=== PATIENT | male | born 1995 | race Two or more races ===

== ENCOUNTER 2019-02-23 09:34 | Emergency (ER) | payer MEDICAID ==
[~2019-02-23] VITALS: Ht 170.2 cm; Wt 68.0 kg
[2019-02-23 09:46] VITALS: BP 120/78
--- NOTE | 2019-02-23 09:49 | NUR ---
ED Nurse Note: Patient walked into ER from home due to right knee pain d/t fall on stairs at home. Patient c/o pain /. Patient aao x 4 and ambulatory but uneven gait due to pain on right knee. Calm and cooperative. No cardiovascular or respiratory distress noted.
--- NOTE | 2019-02-23 09:59 | NUR ---
ED Nurse Note: X-ray at bedside.
--- NOTE | 2019-02-23 10:16 | Diagnostic Imaging Report ---
EXAM: XR Right Knee, 3 Views CLINICAL HISTORY: TRAUMA TECHNIQUE: Three views of the right knee. COMPARISON: None FINDINGS: Bones/joints: No displaced fracture or dislocation identified. Joint space is maintained. No bony lesion. No knee joint effusion. Soft tissues: Normal. IMPRESSION: No displaced fracture or dislocation identified.
[2019-02-23] MEDS ORDERED: NKM (11:03)
--- NOTE | 2019-02-23 11:22 | NUR ---
ED Nurse Note: ERMD with patient.
--- NOTE | 2019-02-23 11:46 | NUR ---
ED Nurse Note: ERMD with patient.
--- NOTE | 2019-02-23 11:53 | NUR ---
ED Nurse Note: Knee immobilizer placed and crutches provided by [employer]. Instructions for crutches given, patient verbalized understanding.
--- NOTE | 2019-02-23 11:58 | Emergency Room Report ---
History of Present Illness General Chief Complaint: Lower Extremity Injury Source: Patient Present Illness HPI She states that this morning he tripped and fell on the stairs and twisted his right knee. He states that he has pain in the medial part of his right knee. He has no other injuries or complaints. He states the pain is worse with movement and walking. Denies weakness. He denies tingling or numbness. He denies any other trauma. Allergies: Coded Allergies: No Known Allergies (Unverified , 02/23/19) Patient History Past Medical History: see triage record Social History: Denies: smoking, alcohol use, drug use Reviewed Nursing Documentation: PMH: Agreed; PSxH: Agreed Nursing Documentation-PMH Past Medical History: No Stated History Review of Systems All Other Systems: negative except mentioned in HPI Physical Exam Vital Signs Date Time Temp Pulse Resp B/P (MAP) Pulse Ox O2 Delivery O2 Flow Rate FiO2 02/23/19 09:41 97.7 61 16 118/68 (85) 98 Room Air Sp02 EP Interpretation: reviewed, normal General Appearance: no apparent distress, alert, GCS 15, non-toxic Head: normocephalic, atraumatic Eyes: bilateral eye normal inspection ENT: hearing grossly normal, normal pharynx, no angioedema, normal voice Neck: full range of motion, supple/symm/no masses Respiratory: no respiratory distress, no retraction, no accessory muscle use, speaking full sentences Rectal: deferred Musculoskeletal: back normal, normal range of motion, tender - TTP over the medial R. knee joint. Anterior and Posterior drawer nml. +pain with medial stress Neurologic: alert, motor strength/tone normal, oriented x3, sensory intact, responsive, speech normal Psychiatric: judgement/insight normal, memory normal, mood/affect normal, no suicidal/homicidal ideation Skin: no rash, normal color Medical Decision Making Diagnostic Impression: Primary Impression: Acute medial meniscal injury of right knee ER Course This patient has a clinical presentation consistent with knee sprain and possibly medial meniscus tear or injury. The patient did have significant tenderness in an antalgic gait so I did obtain imaging which showed no acute fracture. The patient was placed in a knee immobilizer and given crutches for comfort. I also gave anti-inflammatories. No emergency medical condition is identified at this time. The patient is instructed to follow-up closely with orthopedics. I warned the patient that plain x-rays have a significant false-negative rate. Factors, significant soft tissue injuries, and other pathology may be present even though not seen on x-ray. Injuries serious enough to ultimately require surgery may be present with normal x-rays. This can occur because some fractures or not initially visible on plain film x-rays or, rarely, the radiologist may discover a subtle fracture that I missed on my preliminary read. It was explained that close outpatient followup is required to evaluate this possibility. If all symptoms resolve or improve significantly in the coming weeks, no further testing is needed. However, if the pain/symptoms persist, additional studies such as MRI/CT or repeat x-ray would be needed to rule out the possibility of serious soft tissue injury. The patient agreed to followup as directed. Other X-Ray Diagnostic Results Other X-Ray Diagnostic Results : X-Ray ordered: R. knee # of Views/Limited Vs Complete: Complete Indication: Pain EP Interpretation: Yes Interpretation: no dislocation, no fractures Impression: No acute disease Electronically Signed by: Brenda Castrejon DO Last Vital Signs Date Time Temp Pulse Resp B/P (MAP) Pulse Ox O2 Delivery O2 Flow Rate FiO2 02/23/19 09:46 97.7 70 16 120/78 99 Room Air Status: improved Disposition: HOME, SELF-CARE Condition: Improved Referrals: NOT CHOSEN IPA/,REFERRING (PCP) Patient Instructions: Knee Sprain Brenda Castrejon DO Feb 23, 2019 11:58
[2019-02-23] MEDS ORDERED: Ketorolac 60mg Inj IM ONE (12:00)
[2019-02-23] MEDS ORDERED: IBUPROFEN800 MG ORAL (12:00)
[2019-02-23 12:10] VITALS: BP 125/84
--- NOTE | 2019-02-23 12:10 | NUR ---
ER DISCHARGE NOTE: Patient is cleared to be discharged per ERMD, pt is aox4, on room air, with stable vital signs. pt was given discharge instruction and pt was able to verbalize understanding. pt ID band removed. pt is able to ambulate with use of crutches and knee immobilizer. pt took all belongings. pt stable upon discharge.
== END 2019-02-23 12:10 | disposition home or self-care (01) ==
LOC: EMR 09:53
DX: S89.91XA Unspecified injury of right lower leg, initial encounter (principal); W01.0XXA Fall on same level from slipping, tripping and stumbling without subsequent striking against object, initial encounter; Y92.9 Unspecified place or not applicable
CPT/HCPCS: 29505; 73562; 96372; Z7502; 99283

== ENCOUNTER 2019-11-25 00:33 | Emergency (ER) | payer MEDICAID ==
[~2019-11-25] VITALS: Ht 167.6 cm; Wt 72.6 kg
[~2019-11-25 00:33] MED LIST: IBUPROFEN800 MG ORAL; NKM
[2019-11-25 00:53] VITALS: BP 122/72
--- NOTE | 2019-11-25 00:59 | Emergency Room Report ---
History of Present Illness General Chief Complaint: Male Urogenital Problems Source: Patient Present Illness HPI This a 23-year-old male with no past medical history. He presents with complaint of back pain. Onset for about 2 weeks now. Worse with movement. Pain is to the left flank area. Pain is sharp in nature. Pain is 8 out of 10. No radiation of the pain. He said that his urine is little concentrated. Denies any dysuria frequency. Denies any hematuria. This occurred after lifting something heavy. 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 Patient History Past Medical History: see triage record, old chart reviewed Past Surgical History: none Pertinent Family History: none Social History: Denies: smoking Immunizations: other Reviewed Nursing Documentation: PMH: Agreed; PSxH: Agreed Nursing Documentation-PMH Past Medical History: No Stated History Review of Systems Eye: Denies: eye pain, blurred vision ENT: Denies: ear pain, nose congestion, throat swelling Respiratory: Denies: cough, shortness of breath Cardiovascular: Denies: chest pain, palpitations Gastrointestinal: Denies: abdominal pain, diarrhea, nausea, vomiting Musculoskeletal: Reports: back pain; Denies: joint pain Skin: Denies: rash Neurological: Denies: headache, numbness Endocrine: Denies: increased thirst, increased urine Hematologic/Lymphatic: Denies: easy bruising All Other Systems: negative except mentioned in HPI Physical Exam Vital Signs Date Time Temp Pulse Resp B/P (MAP) Pulse Ox O2 Delivery O2 Flow Rate FiO2 11/25/19 00:41 97.0 60 22 115/69 (84) 97 Room Air Vitals normal Sp02 EP Interpretation: reviewed, normal General Appearance: well appearing, no apparent distress, alert Head: normocephalic, atraumatic Eyes: bilateral eye PERRL, bilateral eye EOMI ENT: hearing grossly normal, normal pharynx Neck: full range of motion, supple, no meningismus Respiratory: chest non-tender, lungs clear, normal breath sounds Cardiovascular #1: regular rate, rhythm, no murmur Gastrointestinal: normal bowel sounds, non tender, no mass, no organomegaly, no bruit, non-distended Musculoskeletal: back normal - Tenderness to the left paraspinous muscle along the proximal lumbar area. No midline tenderness. No step-off., gait/station normal Psychiatric: mood/affect normal Medical Decision Making Diagnostic Impression: Primary Impression: Acute lumbar myofascial strain Qualified Codes: S39.012A - Strain of muscle, fascia and tendon of lower back , initial encounter ER Course Patient presents with lumbar strain. No evidence of acute trauma. No evidence of cauda equina syndrome, spinal epidural abscess or neoplastic process. No evidence of infection. Will discharge home. Last Vital Signs Date Time Temp Pulse Resp B/P (MAP) Pulse Ox O2 Delivery O2 Flow Rate FiO2 11/25/19 00:53 97.9 62 20 122/72 98 Room Air Status: improved Disposition: HOME, SELF-CARE Condition: Stable Scripts Ibuprofen* (MOTRIN*) 600 Mg Tablet 600 MG ORAL Q6H PRN for For Pain, #30 TAB 0 Refills Prov: Kirk Foley MD 11/25/19 Hydrocodone/Acetaminophen 5-325* (HYDROCODONE/ACETAMINOPHEN 5-325*) 1 Each Tablet 1 TAB ORAL Q6H PRN for For Pain, #20 TAB 0 Refills Prov: Kirk Foley MD 11/25/19 Additional Instructions: No heavy lifting. Follow-up with your doctor in 7 days. If symptoms continue, you may need an MRI. Return if worse. Kirk Foley MD Nov 25, 2019 00:59
[2019-11-25] MEDS ORDERED: HYDROcodone/Acetamin 5/325 tab ORAL ONE (01:00)
[2019-11-25 01:05] LABS: APPEARANCE,URINE CLEAR; COLOR,URINE PALE YELLOW
[2019-11-25 01:06] LABS: BILIRUBIN, URINE NEGATIVE (NEGATIVE); GLUCOSE, URINE (UA) NEGATIVE (NEGATIVE); KETONES,URINE NEGATIVE (NEGATIVE); LEUKOCYTE ESTERASE ,URINE NEGATIVE (NEGATIVE); NITRITE,URINE NEGATIVE (NEGATIVE); PROTEIN,URINE NEGATIVE (NEGATIVE); UROBILINOGEN,URINE NORMAL MG/DL (0.0-1.0)
[2019-11-25] MEDS ORDERED: IBUPROFEN600 M1 ORAL (01:19)
[2019-11-25] MEDS ORDERED: HYDROCODON-ACE1 EA15 ORAL (01:19)
[2019-11-25 01:22] VITALS: BP 120/76
== END 2019-11-25 01:22 | disposition home or self-care (01) ==
LOC: EMR 01:00
DX: S39.012A Strain of muscle, fascia and tendon of lower back, initial encounter (principal); X58.XXXA Exposure to other specified factors, initial encounter; Y92.9 Unspecified place or not applicable
CPT/HCPCS: 81003; Z7502; 99282

== ENCOUNTER 2020-05-14 14:16 | Emergency (ER) | payer MEDICAID, OTHER ==
[~2020-05-14] VITALS: Ht 170.2 cm; Wt 81.6 kg
[~2020-05-14 14:16] MED LIST changes: +HYDROCODON-ACE1 EA15 ORAL; +IBUPROFEN600 M1 ORAL
[2020-05-14 14:21] VITALS: BP 119/56
--- NOTE | 2020-05-14 14:42 | NUR ---
ED Nurse Note: pt stated that he was at work pushing an 80lb container and felt the back of his hamstring "pop"
--- NOTE | 2020-05-14 14:42 | Emergency Room Report ---
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 He felt a sudden tearing feeling in the back of his right thigh. Denies any other trauma at that time. When he moves his leg he has 8/10 pain. When the leg is not being moved it is 4/10. Radiates somewhat into the buttock area. There is no numbness. The patient has never injured his extremities before. Patient denies exposure to Covid positive contacts. 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 Nursing Documentation: PMH: Agreed; PSxH: Agreed Nursing Documentation-PMH Past Medical History: No Stated History Review of Systems Constitutional: Denies: fever Musculoskeletal: Reports: see HPI Skin: Denies: rash Neurological: Denies: numbness Physical Exam Vital Signs Date Time Temp Pulse Resp B/P (MAP) Pulse Ox O2 Delivery O2 Flow Rate FiO2 05/14/20 14:21 97.3 64 17 119/56 (77) 99 Room Air Sp02 EP Interpretation: reviewed, normal General Appearance: well appearing, no apparent distress, GCS 15 Head: normocephalic Eyes: bilateral eye normal inspection, bilateral eye PERRL ENT: moist mucus membranes Cardiovascular #1: regular rate, rhythm Cardiovascular #2: 2+ radial (R), 2+ dorsalis pedis (R) Gastrointestinal: normal inspection Musculoskeletal: no calf tenderness, tenderness - Right hamstring with no joint pain in hip or knee. Tenderness to palpation. Neurologic: alert, oriented x3, grossly normal Psychiatric: mood/affect normal Skin: no rash, warm/dry Medical Decision Making Diagnostic Impression: Primary Impression: Hamstring strain Qualified Codes: S76.311A - Strain of muscle, fascia and tendon of the posterior muscle group at thigh level, right thigh, initial encounter ER Course Patient had a sudden pain in his hamstring on the right-hand side while pushing. Differential includes hamstring tear, hamstring strain, sprain of the hip amongst others. Based on the clinical exam x-rays not indicated. The patient will be treated with a shot of Toradol and Percocet. Based on physical exam complete tear is excluded. Patient was told his diagnosis and treatment plan. Patient stable for outpatient observation and treatment. Patient will need repeat evaluation next week. Last Vital Signs Date Time Temp Pulse Resp B/P (MAP) Pulse Ox O2 Delivery O2 Flow Rate FiO2 05/14/20 14:21 97.3 64 17 119/56 (77) 99 Room Air Status: improved Disposition: HOME, SELF-CARE Condition: Improved Scripts Hydrocodone/Acetaminophen 5-325* (HYDROCODONE/ACETAMINOPHEN 5-325*) 1 Each T ablet 1 TAB ORAL Q6H PRN for For Pain, #10 TAB 0 Refills Prov: Theo Rodas MD 05/14/20 Ibuprofen* (MOTRIN*) 600 Mg Tablet 600 MG ORAL Q6H PRN for FOR PAIN, #20 TAB 0 Refills Prov: Theo Rodas MD 05/14/20 Theo Rodas MD May 14, 2020 14:42
[2020-05-14] MEDS ORDERED: oxyCODONE HCL/Acetaminophen 5/325mg ORAL ONE (14:45)
[2020-05-14] MEDS ORDERED: Ketorolac 30mg Inj IM ONE (14:45)
[2020-05-14] MEDS ORDERED: IBUPROFEN600 M1 ORAL (14:48)
[2020-05-14] MEDS ORDERED: HYDROCODON-ACE1 EA15 ORAL (14:48)
--- NOTE | 2020-05-14 15:52 | NUR ---
ED Nurse Note: pt stated that his leg is feeling better. As long as he isn't walking it's a lot more comfortable
--- NOTE | 2020-05-14 16:15 | NUR ---
ER DISCHARGE NOTE: Patient is cleared to be discharged per ERMD, pt is aox4, on room air, with stable vital signs. pt was given dc and prescription instructions, pt was able to verbalize understanding. pt transported off the floor in a wheelchair. pt took all belongings.
== END 2020-05-14 16:17 | disposition home or self-care (01) ==
LOC: EMR 14:57
DX: S76.311A Strain of muscle, fascia and tendon of the posterior muscle group at thigh level, right thigh, initial encounter (principal); X50.9XXA Other and unspecified overexertion or strenuous movements or postures, initial encounter; Y93.89 Activity, other specified; Y92.89 Other specified places as the place of occurrence of the external cause
CPT/HCPCS: 96372; 99283; J1885